=== PATIENT | male | born 1990 | race Caucasian/White ===

== ENCOUNTER 2023-05-12 08:12 | Emergency (ER) | payer MEDICAID, SELFPAY ==
[2023-05-12 08:38] VITALS: BP 148/91; PULSE 82; RESP 18; TEMP 36.3; O2SAT 98; BMI 43.4
[2023-05-12] MEDS: Tetracaine HCl/PF 0.5% Oph Sol 4 ML DROPS 3 DROP EYE-BOTH (09:47)
[2023-05-12] MEDS: Fluorescein Sodium STRIP 1 STRIP EYE-BOTH (09:47)
--- NOTE | 2023-05-12 10:16 | ED_ITS ---
HPI - General Adult General Chief complaint: Eye Problems Stated complaint: chemical reaction? 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 Patient states the room did not have proper ventilation. Patient denies any oil, liquid or any object going to eyes. Patient just states room was full of smoke which cause eye irritation. He denies any yellow-green discharge. Patient denies any trauma to eye face or head. Patient states no fever or chills. Patietn denies any change in vision Related Data Allergies Allergy/AdvReac Type Severity Reaction Status Date / Time No Known Allergies Allergy Verified 05/12/23 08:37 Review of Systems Review of Systems: bilateral eye irratation Yes all other systems are reviewed and are negative PMFSH Social History Social History Alcohol intake: never Smoked in Last 30 Days: No Use of substances other than those prescribed or required for medical reasons: No Advance Directives: No Advance Directives Information Provided: No Physical Exam ED Vital Signs: Vital Signs - 24 hr 05/12/23 08:38 05/12/23 10:42 Temperature 97.3 F Pulse Rate 82 80 Respiratory Rate 18 18 Blood Pressure 148/91 H 145/97 H Pulse Oximetry 98 97 Oxygen Delivery Method Room Air Room Air BMI result Body Mass Index 43.4 Const General: cooperative, healthy appearing, comfortable, no acute distress, well developed, alert, awake and Physically active Orientation/consciousness: oriented to person, oriented to place, oriented to time and patient oriented x3 HENMT Head: Yes normal to inspection, Yes No palpable skull fracture present, Yes normocephalic, Yes atraumatic and No abrasion Eyes Other: Positive for bilateral eye redness. Negative for any eyelid swelling, ecchymosis, crepitus, yellow/green discharge, or photophobia. Bilateral eyes pH 7.2. Fluorescein dye and tetracaine placed in eyes. Negative for corneal abrasion/ corneal ulcer/glaucoma, globe trauma, pre toe cellulitis, orbital cellulitis. Left eye visaul actuiy 20/40 and right eye 20/50 General: appearance normal, both eyes and all related structures Corneas: corneas normal Pupils: Equal, round and reactive pupils present EOM: EOMs intact bilaterally Neck Neck: Yes normal visual inspection, Yes full ROM, Yes no lymphadenopathy, Yes no meningeal signs, Yes trachea midline, Yes supple, No anterior neck swelling and No tender Chest Chest palpation & inspection: normal inspection of the chest and normal palpation of entire chest wall Resp Effort & Inspection: normal respiratory effort and able to speak in complete sentences Auscultation: clear to auscultation bilaterally Cardio Jugular venous distension: no JVD Heart sounds: S1 normal heart sound present and S2 normal heart sound present GI Inspection: Yes normal to inspection and No abdominal wall ecchymosis Palpation (GI): Soft to palpation, not firm, nontender, no guarding and not rigid General: No CVA tenderness and Yes no CVA tenderness Back/Spine/Pelvis Back: no CVA tenderness, No CVA tenderness and No back tenderness Skin General skin exam: no rashes or lesions noted and elasticity normal Neuro General: oriented to person, oriented to place, oriented to time, patient oriented x3, gait normal, tone normal, moves all extremities, Normal light touch and pain sensation, no meningeal signs, no focal motor deficits, CN's II-XI intact bilaterally and normal sensation to monofilament Cranial nerves: Yes Equal, round and reactive pupils present Extrem General: Yes normal to inspection and Yes full ROM Psych Appearance: grossly normal, well kempt and not disheveled Medications Administered Discontinued Medications Generic Name Dose Route Start Last Admin Trade Name Freq PRN Reason Stop Dose Admin Fluorescein Sodium 1 strip 05/12/23 09:24 05/12/23 09:47 Fluorescein Sodium Strip EYE-BOTH 05/12/23 09:25 1 strip ONCE ONE Administration Tetracaine HCl 3 drop 05/12/23 09:24 05/12/23 09:47 Tetracaine Hcl/Pf 0.5% Oph [place] 4 Ml Drops EYE-BOTH 05/12/23 09:25 3 drop ONCE ONE Administration Medical Decision Making Medical Decision Making [facility] Narrative: 32-year-old male presents with bilateral eye irritation redness after 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 Patient denies any oral liquids or any object going to his eyes. Patient states symptoms since yesterday afternoon. PH level of eyes are normal on exam. Fluorescein dye tetracaine placed and eyes. Negative for corneal ulcer/abrasion/ globe rupture/ orbital cellulitis/preseptal cellulitis/hyphema /foreign body Differential Diagnosis Differential Diagnoses: The differential diagnosis associated with the presentation includes ( corneal ulcer, corneal abrasion, ascitic eye, basic eye, globe rupture, orbital cellulitis, preseptal cellulitis, foreign body) Admission/Observation Consideration of admission/observation: Escalation of care including admission/observation considered Independent Historian Clinical information obtained from an independent historian. History obtained from or confirmed by: Friend (Friend in ED with similiar symptoms and story) Discharge Plan Discharge Clinical Impression: Irritation of both eyes Patient Disposition: Home, Self-Care Instructions: Eye Pain (ED) Additional Instructions: return to the ED immediately for worsening eye redness, irritation/pain, change in vision, yellow/ green discharge, photophobia, fever, chills, headache, nausea, vomiting, bleeding in the eyes, or any other concerning symptoms. Please follow-up with primary care provider and eye doctor Referrals: Buddy Koenig [Physician] - ( bilateral eye redness/ irritation from smoke from oil frying band) Stand Alone Forms: Work/School Release Interventions: ED Discharge Assessment Last Done: 05/12/23 10:43 Discharge Date/Time: 05/12/23 10:45 Print Language: Hebrew
[2023-05-12 10:42] VITALS: BP 145/97; PULSE 80; RESP 18; O2SAT 97
== END 2023-05-12 10:45 | disposition home or self-care (01) ==
PROVIDERS: Emergency Provider Emergency Medicine Emergency Medical Services
DX: H57.13 Ocular pain, bilateral (principal)
CPT/HCPCS: 99283; 99284